=== PATIENT | male | born 1985 | race Caucasian/White ===

== ENCOUNTER 2018-07-26 12:20 | Emergency (ER) | payer MEDICAID ==
--- NOTE | 2018-07-26 12:34 | NUR ---
Pt stated he has a rt hand fx (which was dx a week ago) and just wanted a referral for ortho. Pt arrived with short arm splint in place. Pt stated he has no health insurance, pt was given follow up information for [facility]. Pt did not want to be seen in the ER.
== END 2018-07-26 12:36 | disposition left against medical advice (07) ==
LOC: ER 12:23
DX: Z53.21 Procedure and treatment not carried out due to patient leaving prior to being seen by health care provider (principal)

== ENCOUNTER 2020-08-05 15:02 | Emergency (ER) | payer SELFPAY ==
[~2020-08-05] VITALS: Ht 170.2 cm; Wt 68.0 kg
[2020-08-05] MEDS ORDERED: TETRACAINE HCL 0.5% OPHT DROP 2 ML BOTTLE OP ONE (16:00)
[2020-08-05] MEDS ORDERED: FLUORESCEIN SODIUM 1 MG STRIP OP ONE (16:00)
[2020-08-05] MEDS ORDERED: TETRACAINE HCL 0.5% OPHT DROP 2 ML BOTTLE ONE (16:04)
[2020-08-05] MEDS ORDERED: FLUORESCEIN SODIUM 1 MG STRIP ONE (16:05)
[2020-08-05] MEDS ORDERED: CEPH500C2 PO (16:14)
[2020-08-05] MEDS ORDERED: HYDR-4209 PO (16:14)
--- NOTE | 2020-08-05 16:22 | NUR ---
PT WAS D/C'd TO HOME. D/C INSTRUCTIONS GIVEN TO THE PT BY DR HOOPER.
[2020-08-05 16:23] VITALS: BP 131/77
== END 2020-08-05 16:24 | disposition home or self-care (01) ==
LOC: ER 15:02
DX: H00.015 Hordeolum externum left lower eyelid (principal)
CPT/HCPCS: A4663